=== PATIENT | female | born 1970 ===

== ENCOUNTER 2024-02-01 06:22 | Day surgery (SDC) | payer OTHER ==
[2024-01-26 10:04] LABS: INR < 0.93; PARTIAL THROMBOPLASTIN TIME 30.8 SECONDS (22.0-34.0); PROTHROMBIN TIME 9.8 SECONDS (9.0-11.5)
[~2024-02-01 06:22] MED LIST: LIPITOR40 M1 PO; OSTERA TABLET1 EACH PO
[2024-02-01] MEDS ORDERED: BUPIVACAINE HCL 30 ML VIAL IJ ONE (08:15)
[2024-02-01] MEDS ORDERED: CEFAZOLIN SODIUM 1,000 MG VIAL IV ONE (08:15)
[2024-02-01] MEDS ORDERED: KETOROLAC TROMETHAMINE 30 MG VIAL IV ONE (08:15)
[2024-02-01] MEDS ORDERED: KETOROLAC TROMETHAMINE 30 MG VIAL IJ ONE (08:15)
[2024-02-01] MEDS ORDERED: LIDOCAINE HCL 1%/EPINEPHRINE 20ML VIAL IJ ONE ×2 (08:15→09:25)
[2024-02-01] MEDS ORDERED: CEFAZOLIN SODIUM 1,000 MG VIAL ONE (09:01)
[2024-02-01] MEDS ORDERED: KETOROLAC TROMETHAMINE 30 MG VIAL ONE (09:25)
[2024-02-01] MEDS ORDERED: METHYLPREDNISOLONE ACETATE 40 MG/ML VIAL ONE (10:24)
[2024-02-01] MEDS ORDERED: METHYLPREDNISOLONE ACETATE 40 MG/ML VIAL IM ONE (10:30)
== END 2024-02-01 12:45 | disposition home or self-care (01) ==
LOC: CIR.AMB 06:22
PROVIDERS: ATTEND Orthopaedic Surgery
DX: M75.02 Adhesive capsulitis of left shoulder (principal); M24.112 Other articular cartilage disorders, left shoulder; M75.22 Bicipital tendinitis, left shoulder; Z91.013 Allergy to seafood